=== PATIENT | female | born 1995 | race Caucasian/White ===

== ENCOUNTER 2016-12-15 18:26 | Emergency (ER) | payer SELFPAY ==
[~2016-12-15] VITALS: Ht 162.6 cm; Wt 93.9 kg
[~2016-12-15 18:26] MED LIST: MOTRIN800 M1
[2016-12-15 18:59] VITALS: BP 114/65
--- NOTE | 2016-12-15 19:29 | NUR ---
PATIENT PRESENTS TO ED WITH AB PAIN 7/10, HULL, DIARRHEA, AND ANXIETY EARLIER THIS AFTERNOON; SKIN IS PINK/WARM/DRY; AAOX4 WITH EVEN AND STEADY GAIT; LUNGS CLEAR BL; HR EVEN AND REGULAR; PT DENIES ANY FEVER, CP, SOB, OR COUGH AT THIS TIME; PATIENT STATES PAIN OF 7/10 AT THIS TIME; VSS; PATIENT POSITIONED FOR COMFORT; HOB ELEVATED; BEDRAILS UP X2; BED DOWN. ER MD MADE AWARE OF PT STATUS.
--- NOTE | 2016-12-15 19:29 | NUR ---
PT TAKEN TO BED 3
--- NOTE | 2016-12-15 19:41 | NUR ---
Dr. Quezada evaluating patient at bedside.
[2016-12-15] MEDS ORDERED: NACL 0.9% 1,000 ML IV ONE (19:50)
[2016-12-15] MEDS ORDERED: KETOROLAC 30 MG/ML VIAL IM ONE (19:50)
[2016-12-15] MEDS ORDERED: ONDANSETRON 4 MG/2 ML VIAL IVP ONE (19:50)
[2016-12-15] MEDS ORDERED: LORazepam 1 MG TAB PO ONE (19:50)
--- NOTE | 2016-12-15 20:48 | NUR ---
IV removed, catheter intact and site benign. Applied folded 4x4 gauze and tape to stop bleeding.
[2016-12-15 20:53] VITALS: BP 116/71
--- NOTE | 2016-12-15 20:53 | NUR ---
Patient discharged with v/s stable. Written and verbal after care instructions given and explained. Patient alert, oriented and verbalized understanding of instructions. Ambulatory with steady gait. All questions addressed prior to discharge. ID band removed. Patient advised to follow up with PMD. Rx of TYLENOL #3 TAB, BENTYL 20MG, AND ZOFRAN ODT 4MG given. Patient educated on indication of medication including possible reaction and side effects. Opportunity to ask questions provided and answered.
== END 2016-12-15 20:53 | disposition home or self-care (01) ==
LOC: MED 18:26
DX: R11.2 Nausea with vomiting, unspecified (principal); R50.9 Fever, unspecified; R19.7 Diarrhea, unspecified; R10.30 Lower abdominal pain, unspecified; Z90.49 Acquired absence of other specified parts of digestive tract
CPT/HCPCS: 36415; 80053; 81025; 83690; 85025; 96361; 96372; 96374; 99284; J1885; J2405; J7030